=== PATIENT | male | born 1950 | race Caucasian/White ===

== ENCOUNTER 2016-06-11 08:31 | Day surgery (SDC) | payer MEDICARE, OTHER ==
[2016-06-11] VITALS (10 sets, daily range): BP systolic 109–162; BP diastolic 60–86; PULSE 64–86; RESP 9–18; O2SAT 90–97
[~2016-06-11] VITALS: Ht 185.4 cm; Wt 112.3 kg
--- NOTE | 2016-06-11 08:02 | PCM.HPANE ---
Patient Data Surgeon Admitting Provider: Attending Provider:Corin Sow MD Primary Care Physician:Johnathan Araiza MD Other Provider:Akua Smithingham Anesthesia Reason for Visit Cholelithiasis Ht/WT & BMI Height (Feet): 6 Height (Inches): 1 Weight (Kilograms): 112.264 Body Mass Index 32.00 Allergies Coded Allergies: No Known Allergies (Unverified , 06/06/16) Past Anesthesia History Anesthesia History: Denies:: Anesthesia Reactions, Malignant Hyperthermia Diabetes History Hx Diabetes?: No MRSA MRSA: No Medications Hypertension Medication: Yes (LOSARTAN) Reported Medications Omalizumab (Xolair)150 Mg [id number] Mg SQ Q4 WEEKS 06/06/16 Oxymetazoline HCl (Nasal [place] Sinus)30 Ml Spray30 Ml NS PRN 06/06/16 Multivitamin (Men's Multi-Vitamin)1 Each Tablet1 Each PO DAILY 06/06/16 Losartan Potassium 25 Mg Jmtakv46 Mg PO DAILY 06/06/16 Omeprazole Magnesium (Prilosec Otc)20 Mg Tablet.dr20 Mg PO DAILY #1 PKG Ref 0 06/06/16 Levocetirizine Dihydrochloride (Xyzal)5 Mg Tablet5 Mg PO QPM 06/06/16 Fexofenadine 180 Mg Nzpuos678 Mg PO DAILY 06/06/16 Ranitidine 150 Mg [id number] Mg PO BID Ref 0 06/06/16 History History of ENT Problems?: Yes HEENT History: Positive for:: Sinus Problem (SEASONAL ALLERGIES) Hx of Heart Problems?: Yes Cardiovascular History: Positive for:: Hypertension Denies:: Heart Murmur Hx of Respiratory Problem?: Yes Respiratory History: Denies:: Use of C-PAP Machine (SNORES) Hx Neurologic Problems?: Yes Hx of GI Problems?: Yes Gastrointestinal History: Positive for:: Gall Bladder Disease (CHOLELITHIASIS= CURRENT PROBLEM) Gastroesphageal Reflux Other GI Pertinent History: S/P ERCP BY DR. Reji THURMAN @ [facility]--PLAN REPEAT ERCP R/T PAPILLARY BX'S THAT SHOW LOW-GRADE DYSPLASIA S/P TOTAL ABD COLECTOMY HX FAP,COLON CA Hx of Problems?: No Male Hx: Denies:: Prostate Problems Scrotal Mass Testicular Surgery Skin History: Denies:: History Skin Disorders? Pressure Ulcers Hx Musculoskeletal Problems?: Yes Musculoskeletal History: Positive for:: Musculoskeletal Trauma (S/P KNEE RPR) Hx of Psycho/Social Problems?: No Hx Surgeries?: Yes (KNEE RPR,ERCP,TOTAL ABD COLECTOMY) Hx Any Other Health Problems?: Yes Other History: Positive for:: Cancer (COLON CA) Hospitalization Denies:: Endocrine Disease Thyroid Disease Hx Diabetes: No Hx Alcohol Use: YesAlcoholic Drinks Per Day: 1/WEEKHave You Smoked inLast 12 mo: YesApprox How Many Cigarettes/day: 35YR HX Stop/Bang S-Snoring: Do You Snore Loudly: Yes T-Tired: feel tired, fatigued: Yes O-Obsered: Observed not breath: No P-Blood Pressure: treated: Yes B- Body Mass Index > 35 kg/m2: No A- Age over 50: Yes N- Neck Large Circumference: Yes G- Gender Male: Yes LISSETH Total Score: 6 Risk Assessment Category Category 1A: Patient has history of documented sleep apnea, and HAS NOT received any narcotic, sedative or anesthesia administration during this stay. Category 1B: Patient has history of documented sleep apnea, and HAS received any narcotic , sedative or anesthesia administration during this stay Category 2: Patient has SUSPECTED Obstructive Sleep Apnea, and HAS received any narcotic , sedative or anesthesia administration during this stay. Category 3: Patient has SUSPECTED Obstructive Sleep Apnea and HAS NOT received narcotic, sedative or anesthesia administration during this stay. Category 4: Outpatient in Procedural Areas with known sleep apnea or who screen positive for High Risk via the STOP/BANG questionnaire. Exam Exam General Appearance: Alert, Oriented X3, Cooperative, No Acute Distress HEENT/AIRWAY: MP 1 Lungs: Normal Air Movement Heart: Regular Rate/Rhythm Plan Impression Patient chart reviewed, patient interviewed and anesthestic plan with risks, benefits, and alternatives discussed, and informed consent obtained. ASA Physical Status: ASA3 Severe Disease Anesthetic Plan: GA Bene/Risks/Altern/Consents: Yes HP Complete Prior to Induction: Yes Lina Rocha DO Jun 11, 2016 08:02
[~2016-06-11 08:31] MED LIST: CeFAZolin Inj 2 GM in IV Premix 1 EACH IV ONE; FEXO-106 PO; LEVO5TAB29 PO; LOSA25TA21 PO; Lactated Ringer's 1,000 ML IV SCH; MULT-544 PO; OMAL150V SQ; OMEP20TA24 PO; OXYM30SP18 NS; RANI150C4 PO
[2016-06-11] MEDS ORDERED: Ondansetron 2 mg/mL 2 mL Inj ONE (08:32)
[2016-06-11] MEDS ORDERED: Propofol 10,000 mCg/mL 20 mL Inj ONE (08:32)
[2016-06-11] MEDS ORDERED: fentaNYL-PF 50 mCg/mL 2 mL Inj ONE (08:32)
[2016-06-11] MEDS ORDERED: Phenylephrine/NS 100 mCg/mL 10 mL Syringe IVPUSH ONE (08:32)
[2016-06-11] MEDS ORDERED: Neostigmine 1 mg/mL 5 mL Inj ONE (08:32)
[2016-06-11] MEDS ORDERED: Rocuronium 10 mg/mL 5 mL Inj ONE (08:32)
[2016-06-11] MEDS ORDERED: EPHEDrine/NS 5 mg/mL 5 mL Syringe ONE (08:32)
[2016-06-11] MEDS ORDERED: Dexamethasone 4 mg/mL Inj ONE (08:32)
[2016-06-11] MEDS ORDERED: Lactated Ringer's 1,000 ML IV ONE (08:59)
[2016-06-11] MEDS ORDERED: Bupivacaine-MPF 0.5% W/EPI 30 mL Inj INFILTRATE ONE (10:21)
[2016-06-11] MEDS ORDERED: Lactated Ringer's 1,000 ML IV SCH (11:12)
[2016-06-11] MEDS ORDERED: Lactated Ringer's 500 ML IV PRN (11:12)
[2016-06-11] MEDS ORDERED: Phenylephrine 10,000 mCg/mL Inj IVPUSH PRN (11:15)
[2016-06-11] MEDS ORDERED: fentaNYL-PF 50 mCg/mL 2 mL Inj IVPUSH PRN (11:15)
[2016-06-11] MEDS ORDERED: MetoCLOpramide 5 mg/mL 2 mL Inj IVPUSH PRN (11:15)
[2016-06-11] MEDS ORDERED: HYDROmorphone 1 mg/mL Inj IVPUSH PRN (11:15)
[2016-06-11] MEDS ORDERED: EPHEDrine Sulfate 50 mg/mL Inj IVPUSH PRN (11:15)
[2016-06-11] MEDS ORDERED: Ondansetron 2 mg/mL 2 mL Inj IVPUSH PRN (11:15)
[2016-06-11] MEDS ORDERED: oxyCODONE-Acetamin 5-325 mg Tablet PO PRN (12:55)
--- NOTE | 2016-06-11 12:59 | PCM.SURGOP ---
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 He undergoes routine endoscopic surveillance for this at the [facility]. He has a history of right upper quadrant pain and transiently elevated LFTs. He had a recent episode of this, and presented to the [facility], where endoscopic ultrasound as well as ERCP were performed by his screening technician, Dr. Gamaliel Ramos. He had a sphincterotomy, common bile duct stent placement, and pancreatic duct stent placement. Abdominal ultrasound showed cholelithiasis, and his overall history was suggestive of the passage of stones through the common bile duct. Therefore , Dr. Ramos requested laparoscopic cholecystectomy to avoid future complications due to cholecystitis. Findings: 1. Adhesions from previous vertical midline incision from the patient's colectomy, requiring laparoscopic adhesiolysis. 2. Moderately severe adhesions of the gallbladder. A loop of small intestine was adhered to it, as well as the duodenum. 3. Intraoperative cholangiogram revealed a patent common bile duct stent and present pancreatic duct stent. There was a filling defect that appeared to be a large bubble of air, most likely intraluminal air transiting retrograde due to the biliary stent. No findings to suggest choledocholithiasis. The common bile duct was dilated. Otherwise normal biliary tree. Procedure Details The patient was brought to the operating room and placed in supine position. General endotracheal anesthesia was smoothly induced. Antibiotics were infused. A warming blanket and SCDs were placed. A foot board was placed. The operative field was prepped and draped in sterile fashion. A pause was performed to confirm the correct patient, procedure, site, and side. Because the patient had a previous vertical midline incision, a right upper quadrant 5 mm incision was made and a Veress needle was used for insufflation. The intra-abdominal cavity was inspected and there were many adhesions to the previous vertical midline incision. An additional right upper quadrant 5 mm port was placed. Adhesiolysis was performed using scissors and a small amount of electrocautery to expose the area near the umbilicus. A 10 mm vertical incision was made at the level of the umbilicus in the previous vertical midline scar. A 10 mm Keating port was placed. Adhesiolysis then continued to expose the midportion of the epigastrium such that a 5 mm mid epigastric port to be placed. The gallbladder was identified and lifted cephalad. There were substantial adhesions likely due to cholecystitis. A loop of small intestine was adhered to the gallbladder, and was carefully dissected off sharply. Once this was down , the duodenum was seen to be adhered to the gallbladder as well. It was carefully dissected off of the gallbladder primarily using sharp dissection to avoid the possibility of cautery injury. Dissection then proceeded to identify the cystic duct, cystic artery, and to fully expose the cystic plate. Once there were two and only two structures entering the gallbladder, a clip was placed on the gallbladder side of the cystic duct. A ductotomy was made and a cholangiocatheter was inserted. A cholangiogram was performed and the cystic duct was long and patent. The previously placed common bile duct stent was present and patent, and there appeared to be a bubble of air transiting through it into the common bile duct, most likely originating in the duodenum. The pancreatic duct stent was also present. There were no additional filling defects. The right hepatic duct, left hepatic duct, common hepatic duct, common bile duct were all visualized. The common bile duct was mildly dilated. The client again was otherwise normal. The cholangiocatheter was then removed, two clips were placed on the cystic duct and it was divided. The cystic artery was clipped on both the gallbladder side and the patient's side and divided. It had a branch onto the gallbladder, which was also clipped and divided to facilitate hemostasis during dissection. The gallbladder was then removed from its bed on the liver with electrocautery. Prior to completely removing the gallbladder, a final look was taken at the stump of the cystic artery and cystic duct, and there was no bleeding or bile leak. The gallbladder was then fully removed from the liver and placed in an EndoCatch bag and removed. The three 5 mm ports were removed under direct vision, the 10 mm mid abdominal port was removed, and a figure-of- eight 0 PDS was used to close the fascia. There was no fascial defect at the end of the case. 0.5% Marcaine with epinephrine was infused at all port sites for postoperative analgesia. The skin was closed with subcuticular 4-0 Monocryl. Sterile dressings were placed. Sponge, instrument, and needle counts were correct at the end of the procedure. The patient was awakened from general anesthesia and taken to the postoperative care unit in good condition. A modifier 22 is requested due to the substantial adhesions from previous abdominal colectomy which required significant adhesiolysis in order to complete the procedure. The operation took approximately twice the usual amount of time to finish. Complications There were no periprocedural complications identified. Surgical Specimen Removed: Yes Specimen sent to Pathology: Yes Surgical Specimen description: Gallbladder Anesthetic Plan: GA Grafts, Implants: None Output, Estimated Blood Loss: 2 (ml) Blood Administration during dailey: No Corin Sow MD Jun 11, 2016 12:59
--- NOTE | 2016-06-11 13:41 | PCM.ANEP2 ---
Post Anesthesia Evaluation ASA/CMS Post Anesthesia VS in Patient's Normal Range?: Yes Resp Stable; Airway Patent?: Yes CV Function & Hydration Stable: Yes Mental Status Recovered?: Yes Pain control Satisfactory?: Yes N/V Control Satisfactory?: Yes Lina Rocha DO Jun 11, 2016 13:41
--- NOTE | 2016-06-11 13:41 | PCM.ANEP1 ---
Post Anesthesia Phase 1 PACU Phase 1 Assessment Date of Service: Jun 11, 2016 Vital Signs Vital Signs Date Time Temp Pulse Resp B/P Pulse Ox O2 Delivery O2 Flow Rate FiO2 06/11/16 13:11 72 16 109/69 96 Room Air 06/11/16 13:05 64 9 112/67 93 Room Air 06/11/16 12:59 66 9 118/70 95 Room Air 06/11/16 12:50 72 15 122/69 90 Room Air 06/11/16 12:40 79 11 113/73 94 Room Air 06/11/16 12:34 81 12 137/71 97 Simple Mask 10 06/11/16 12:30 86 13 146/86 95 Simple Mask 10 06/11/16 12:25 36.8 86 14 162/84 96 Simple Mask 10 06/11/16 08:59 36.2 71 18 127/70 96 Room Air Anesthetic Administered: GA Level of Alertness: Awake, talking MOTA's with Equal Strength: Yes Pain: No Nausea or Vomiting: No Oxygen Delivery: Simple Mask Lungs: Normal Air Movement Lina Rocha DO Jun 11, 2016 13:41
--- NOTE | 2016-06-11 13:54 | DRSVH ---
PROCEDURE: X-RAY OPERATIVE CHOLANGIOGRAM ([id number]) INDICATIONS: CHOLELITHIASIS COMPARISON: None. FINDINGS: Biliary ducts: The surgeon injected contrast into the biliary ducts after cannulation of the cystic duct stump. Visualized intra- and extrahepatic bile ducts are normal in caliber, without strictures. Rivers[place]-shaped intraluminal filling defect within the mid hepatic bowel duct present. No evidence f or iatrogenic ductal injury. Duodenum: Contrast flows promptly through the sphincter of Oddi into the duodenum, which appears nor mal in caliber. IMPRESSION: Intraluminal filling defect present which may be related to tumefactive sludge. Recommen d correlation with real-time exam. Dictated by: Vega QURESHI Interpreted: Lisa Armenta MD on 06/11/2016 at 13:50 Transcribed by: KOKO on 06/11/2016 at 13:53 Approved by: Lisa Armenta M.D. on 06/11/2016 at 16:53
--- NOTE | 2016-06-13 14:12 | PATH ---
SURGICAL PATHOLOGY Attending Physician:Corin Sow MD CASE STATUS: Signed Out PATIENT NAME: CARLOS RUSSELL PID: [id number] : 1950 DATE COLLECTED:06/11/2016 20:48 SPECIMEN: Gallbladder CLINICAL HISTORY: CHOLELITHIASIS 1). GALLBLADDER FINAL DIAGNOSIS: 1.GALLBLADDER: ACALCULOUS CHRONIC CHOLECYSTITIS. ICD10 CODE K81.1 GROSS DESCRIPTION: The specimen is received in one formalin filled container labeled with the patient's name, sublabeled "gallbladder" and consists of an intact 8.5 x 2.0 x 2.0 CM gallbladder. The serosa is smooth. The wall is 0.2-0.6 CM in thickness. The mucosa is a pink to siegel-montesinos in color. The lumen contains a dark red thick friable material or blood. No calculi are noted. 5 operations support representative sections are submitted in one cassette. 06/11/2016 DAC MICRO DESCRIPTION: See diagnosis. ICD-9 CODES: CPT CODES: 1: 86128 Electronically Signed Out Stan Johnson MD [facility] [address], [place] [address] Technical component performed at [facility], [address] [place] [address] Ave[address], [place], [address]
== END 2016-06-11 23:59 | disposition home or self-care (01) ==
LOC: SAS 08:31
PROVIDERS: ATTEND Surgery
DX: K80.10 Calculus of gallbladder with chronic cholecystitis without obstruction (principal); K66.0 Peritoneal adhesions (postprocedural) (postinfection); K82.8 Other specified diseases of gallbladder; J30.2 Other seasonal allergic rhinitis; I10 Essential (primary) hypertension; Z87.891 Personal history of nicotine dependence; Z85.038 Personal history of other malignant neoplasm of large intestine
CPT/HCPCS: 47563; 74300; J0690; J1100; J2370; J2405; J2710; J3010; J7120; Q9967